=== PATIENT | female | born 1965 | race Asian ===

== ENCOUNTER 2018-06-08 06:44 | Day surgery (SDC) | payer OTHER ==
[2018-06-07 09:29] LABS: MEAN CORPUSCULAR HEMOGLOBIN 24.5 pg (27.0-34.8); MEAN CORPUSCULAR HGB CONC 31.8 g/dL (32.4-35.8); MEAN CORPUSCULAR VOLUME 77.1 fL (80-100); PLATELET COUNT 358 x10^3/uL (130-400); RED BLOOD COUNT 5.08 x10^6/uL (3.82-5.3)
[2018-06-07 09:40] LABS: ALANINE AMINOTRANSFERASE 25 U/L (12-78); ALBUMIN 3.9 g/dL (3.4-5.0); ANION GAP 8 mmol/L (5-15); CALCIUM 8.8 mg/dL (8.5-10.1); CHLORIDE 108 mmol/L (98-107)
[2018-06-07 09:43] LABS: ALKALINE PHOSPHATASE 102 U/L (45-117); BILIRUBIN,TOTAL 0.3 mg/dL (0.2-1.0); TOTAL PROTEIN 8.7 g/dL (6.4-8.2)
[2018-06-07 09:45] LABS: BASOPHILS # (AUTO) 0.06 x10^3/uL (0-0.1); BASOPHILS % (AUTO) 1 % (0-1); EOSINOPHILS # (AUTO) 0.15 x10^3/uL (0-0.4); EOSINOPHILS % (AUTO) 3 % (1-7); LYMPHOCYTES % (AUTO) 42 % (22-44); MD SCAN; MONOCYTES # (AUTO) 0.47 x10^3/uL (0.2-0.8); MONOCYTES % (AUTO) 11 % (2-9); NEUTROPHILS # (AUTO) 1.95 x10^3/uL (1.8-6.8); NEUTROPHILS % (AUTO) 43 % (42-75)
[~2018-06-08] VITALS: Ht 160 cm; Wt 62.4 kg
[~2018-06-08 06:44] MED LIST: ASCO-96 PO; CALC200T3 PO; CIPR500T3 PO; FERR324T5 PO; METF500T17 PO; SULF1TAB24 PO
[2018-06-08] MEDS ORDERED: LACTATED RINGERS 1,000 ML IV SCH (07:11)
[2018-06-08 07:34] VITALS: BP 117/76
[2018-06-08] MEDS ORDERED: MIDAZOLAM 1 MG/ML, 2ML ONE (08:32)
[2018-06-08] MEDS ORDERED: FENTANYL PF 100 MCG/2ML ONE (08:32)
[2018-06-08] MEDS ORDERED: PROPOFOL 50 ML ONE (08:33)
[2018-06-08] MEDS ORDERED: PHENYLEPHRINE 10 MG/ML ONE (08:40)
[2018-06-08] MEDS ORDERED: HYDROmorphone 1 MG/ML, 1ML IV PRN (09:00)
[2018-06-08] MEDS ORDERED: HALOPERIDOL 5 MG/ML IV PRN (09:00)
[2018-06-08] MEDS ORDERED: OXYcodone 5 MG/5 ML ORAL.SOL UDC PO PRN (09:00)
[2018-06-08] MEDS ORDERED: FENTANYL PF 100 MCG/2ML IV PRN (09:00)
[2018-06-08] MEDS ORDERED: LABETALOL 5MG/ML, 20ML IV PRN (09:00)
[2018-06-08] MEDS ORDERED: hydrALAzine 20 MG/ML, 1ML IV PRN (09:00)
[2018-06-08] MEDS ORDERED: MEPERIDINE/PF 25MG/0.5ML IVPush PRN (09:00)
[2018-06-08] MEDS ORDERED: ONDANSETRON 2MG/ML, 2ML IV PRN (09:00)
[2018-06-08] MEDS ORDERED: ACETAMINOPHEN 325 MG TABLET PO PRN (09:00)
[2018-06-08] MEDS ORDERED: ONDANSETRON 2MG/ML, 2ML ONE (10:31)
== END 2018-06-08 12:25 | disposition home or self-care (01) ==
LOC: OUT 06:44
PROVIDERS: ATTEND Internal Medicine
DX: K86.1 Other chronic pancreatitis (principal); K86.9 Disease of pancreas, unspecified; I10 Essential (primary) hypertension; E11.9 Type 2 diabetes mellitus without complications; E78.5 Hyperlipidemia, unspecified
CPT/HCPCS: 36415; 43238; 80053; 82962; 85025; 88172; 88173; 88307; 93005; J2250; J2370; J2405; J2704; J3010; J7120